=== PATIENT | female | born 1995 | race African-American/Black ===

== ENCOUNTER 2017-02-28 09:27 | Inpatient (IN) ==
[2017-02-28] MEDS ORDERED: SODIUM CHLORIDE 0.9% 500 ML IV STA (10:17)
[2017-02-28] MEDS ORDERED: ONDANSETRON 4 MG/2 ML VIAL IV STA (10:17)
[2017-02-28] MEDS ORDERED: ONDANSETRON 4 MG/2 ML VIAL ONE ×3 (10:44→17:27)
[2017-02-28 10:53] LABS: Basophils % 0.2 % (0.0-0.8); Eosinophils # 0.1 10*3/uL (0.0-0.87); Eosinophils % 0.4 % (0.00-10.9); Hematocrit 26.5 VOL% (35.7-47.0); Hemoglobin 8.3 GM/DL (12.0-16.0); Immature Granulocytes % 0.7 %; Immature Granulocytes Absolute 0.12 #; Lymphocytes # 1.3 10*3/uL (1.4-4.0); Lymphocytes % 7.3 % (21.3-54.2); Mean Corpuscular HGB Conc 31.3 GM/DL (32-36); Mean Corpuscular Hemoglobin 23 PG (27-34); Mean Corpuscular Volume 74.9 FL (87-102); Mean Platelet Volume 9.7 FL (9.6-12.0); Monocytes # 1.4 10*3/uL (0.11-0.8); Monocytes % 7.9 % (1.7-12.7); Neutrophils % 83.5 % (38.7-73.9); Platelet Count 377 T/CUMM (130-400); Red Blood Count 3.54 MC/CUMM (3.8-5.5); Red Cell Distribution Width 18.2 % (9.3-17.3)
[2017-02-28 11:01] LABS: Apearance,Urine Slightly Hazy (Clear); Bilirubin,Urine Negative (Negative); Blood, Urine Negative (Negative); Glucose,Urine (UA) Negative (Negative); Ketones,Urine 5 mg/dL (Negative); Mucus,Urine Many /LPF (Occasional); Nitrite,Urine Negative (Negative); Protein,Urine 100 MG/DL; RBC,Urine 2 /HPF (0-4); Squamous Epithelial Cell,Urine Occasional /HPF (0-10); Urine Color Dark Yellow (Yellow); Urine Specific Gravity 1.032 (1.001-1.035); Urine Urobilinogen < 2.0 EU/DL (0.2-1.0); WBC,Urine 2 /HPF (0-6)
[2017-02-28 11:30] LABS: Albumin 3.5 G/DL (3.4-5.0); Bilirubin,Total 1.2 MG/DL (0.2-1.0); Calcium 8.2 MG/DL (8.5-10.1); Magnesium 1.7 MG/DL (1.8-2.4); Osmolality,Calculated 276.5 MOS/KG (273-304); Potassium 3.5 MMOL/L (3.5-5.1)
--- NOTE | 2017-02-28 12:20 | CT Report ---
Referring physician: Jonny Rothman EXAM: CT abdomen and pelvis with contrast DATE: February 28, 2017 COMPARISON: Pelvic ultrasound January 04, 2017 REASON: Diffuse/generalized abdominal pain with nausea TECHNIQUE: Axial images of the abdomen and pelvis were obtained after administration of 100 cc of Omnipaque 350 IV contrast. Coronal and sagittal reformatted images were also provided. Total DLP is 767.8 mGy*cm. FINDINGS: Lower thorax: The visualized lower lung zones are clear. ABDOMEN: Liver: Unremarkable. Gallbladder and bile ducts: The gallbladder is unremarkable. No biliary duct dilatation is present. Pancreas: Unremarkable. Spleen: Unremarkable. Adrenals: Unremarkable. Kidneys and ureters: No hydronephrosis or suspicious renal lesion is identified. The ureters are unremarkable as visualized. PELVIS: Bladder: The bladder is poorly distended and difficult to evaluate. Reproductive: The uterus is enlarged and contains several masses which are most consistent with uterine fibroids. One is likely subserosal and located at the anterior uterine wall, and another could be intramural or submucosal and obscures the endometrium. Similar findings are seen on the prior pelvic ultrasound. Evaluation of the ovaries is limited. There is a fluid-filled tubular structure adjacent to the left aspect of the uterus. This could represent an unopacified loop of small bowel or left hydrosalpinx. ABDOMEN AND PELVIS: Bowel: There is no evidence of bowel obstruction. Evaluation for bowel wall thickening is difficult due to areas of poor distention, but there is questionable mild bowel wall thickening at some loops of proximal small bowel. Appendix: The appendix is partially obscured, but the visualized portion appears normal in size. Vasculature: The abdominal aorta is normal in size. Peritoneum/retroperitoneum: No free air is identified. However, there is diffuse mesenteric edema and mild ascites within the abdomen and pelvis. Lymph nodes: There are a few borderline prominent periaortic lymph nodes. A left periaortic lymph node on image 68, series 2 measures 1 cm in short axis diameter. Abdominal/pelvic wall: Unremarkable. Bones: No acute osseous process is seen. There is mild levoscoliosis at the lumbar spine. IMPRESSION: 1. The uterus is enlarged and contains several masses which are most consistent with uterine fibroids. This is similar to the prior ultrasound. 2. There is a tubular fluid-filled structure adjacent to the left aspect of the uterus. This could represent a fluid-filled loop of small bowel or left hydrosalpinx. 3. There is mild ascites within the abdomen and pelvis and diffuse mesenteric edema. There is also questionable mild wall thickening at some loops of proximal small bowel. Considerations include enteritis or other infectious/inflammatory processes such as pelvic inflammatory disease. The CT exam was performed using one or more of the following dose reduction techniques: Automated exposure control and adjustment of the mA and/or kV according to patient size. PROCEDURE INTERPRETED AT [facility] DEPARTMENT OF RADIOLOGY Final Report Signed by: Dr. Pako Girard
--- NOTE | 2017-02-28 12:48 | Emergency Department Note ---
Evi Abraham Brittany, am scribing for, and in the presence of, Jonny Rothman MD 10:22. Stephan Abraham Phillip K, MD, personally performed the services described in this documentation, ascribed by Nury Steve in my presence, and it is both accurate and complete 044 . Arrival - Arrival Chief Complaint: Abdominal / Flank Pain Stated Complaint: cp and back pain ED Nursing Triage Note: c/o rt lower back pain and upper abd pain onset yesterday. took aleve without relief Mode of Arrival: Ambulatory Limitations: No Limitations Source: Patient Time Seen by Provider: 02/28/17 10:01 - History of Present Illness HPI Narrative: This is a 21 y/o female,who presents to the ED with c/o lower back pain which started yesterday. She localizes the back pain to the right lower back area. She reports the back pain moves into the upper right quadrant of the abdomen and moves into her neck. She reports nausea but no vomiting. She reports she has noticed hematuria but this is secondary to her menstrual cycle. She states Her menstrual cycle started February 13 and has been constant since then. She states her menstrual cycle has been lke this since she has started control. She reports she took OTC meds without relief. She has no other complaints/pain in the ED at this time. Pt denies a PMHx. Pt denies a surgical Hx. Pt denies a family medical Hx. Pt denies a social Hx. Onset (ago): day(s) (Started yesterday) Consistency: constant Severity: moderate Date of Last Menstrual Period: now Allergies/Adverse Reactions: Allergies Allergy/AdvReac Type Severity Reaction Status Date / Time Penicillins Allergy Unknown/Unable Verified 01/04/17 21:17 to obtain Home Medications: Home Medications Medication Instructions Recorded Confirmed Type No Known Home Medications [No 02/28/17 02/28/17 History Known Home Medications] Review of System - Review of System 12 point system: reviewed and no additional remarkable complaints except as stated - Review of System Constitutional: Absent: chills, fever Gastrointestinal: Present: abdominal pain (Upper abdomen pain ), nausea. Absent : vomiting Genitourinary female: Present: hematuria Musculoskeletal: Present: lower back pain (Right sided lower back pain ), neck pain Medical,Surgical,& Family Hx - Social History Smoking Status: Never smoker Frequency of Alcohol Use: None Type of Drug Use: None Exam Vital Signs: Vital Signs Temperature 98 F 02/28/17 18:10 Pulse Rate 96 H 02/28/17 18:10 Respiratory Rate 19 02/28/17 18:10 Blood Pressure 132/77 02/28/17 18:10 O2 Sat by Pulse Oximetry 96 02/28/17 18:10 - General General appearance: alert, in no apparent distress - Head Head exam: Present: atraumatic, normocephalic, normal inspection - Eye Eye exam: Present: normal appearance, PERRL, EOMI. Absent: nystagmus, miosis, mydriasis - ENT ENT exam: Present: normal exam, normal oropharynx, mucous membranes moist - Neck Neck exam: Present: normal inspection, full ROM, trachea midline. Absent: tenderness, meningismus, lymphadenopathy, thyromegaly - Chest Chest inspection: Present: normal inspection, symmetric chest wall rise. Absent : tenderness, rash, abscess - Respiratory Respiratory exam: Present: normal lung sounds bilaterally ( ). Absent: rales, respiratory distress, rhonchi, stridor, wheezes - Cardiovascular Cardiovascular exam: Present: normal rhythm, tachycardia, normal heart sounds. Absent: murmur, rubs, gallop, clicks - Abdominal Exam Abdominal exam: Present: soft, tenderness (Diffuse abdomen tenderness, Abdomen TTP), rebound, diminished bowel sounds. Absent: distention, guarding, rigidity - Rectal Exam Rectal exam: Present: deferred - Extremities Exam Extremities exam: Present: normal inspection, full ROM, normal capillary refill. Absent: tenderness, pedal edema, joint swelling, calf tenderness - Back Exam Back exam: Present: normal inspection, full ROM. Absent: tenderness, muscle spasm, rashes - Neurological Exam Neurological exam: Present: alert, oriented X3, CN II-XII intact. Absent: motor sensory deficit - Psychiatric Psychiatric exam: Present: normal affect, normal mood. Absent: depressed, agitated, anxious, manic - Skin Skin exam: Present: warm, dry, intact, normal color. Absent: rash, cyanosis, diaphoresis, erythema, pallor, mottled Results - Labs CBC & BMP: 02/28/17 17:53 02/28/17 10:32 Lab Results: I have reviewed the patients labs Labs: Laboratory Tests Laboratory Tests 02/28/17 02/28/17 02/28/17 10:32 10:32 10:32 WBC 18.0 H RBC 3.54 L Hgb 8.3 L Hct 26.5 L MCV 74.9 L MCH 23 L MCHC 31.3 L RDW 18.2 H Plt Count 377 MPV 9.7 Neut % (Auto) 83.5 H Lymph % (Auto) 7.3 L [place] % (Auto) 7.9 Eos % (Auto) 0.4 Baso % (Auto) 0.2 Neut # (Auto) 15.0 H Lymph # (Auto) 1.3 L [place] # (Auto) 1.4 H Eos # (Auto) 0.1 Baso # (Auto) 0.0 Immature Gran % 0.7 Nucleated RBC % 0.0 Immature Gran # 0.12 Nucleated RBCs # 0.00 Sodium 139 Potassium 3.5 Chloride 105 Carbon Dioxide 25 Anion Gap 12.5 BUN 12 Creatinine 0.70 GFR Calculation 152 BUN/Creatinine Ratio 17.00 Glucose 103 Calculated Osmolality 276.5 Lactic Acid Calcium 8.2 L Magnesium 1.7 L Total Bilirubin 1.20 H AST 18 ALT 18 Alkaline Phosphatase 60 Total Protein 8.0 Albumin 3.5 Globulin 4.5 H Albumin/Globulin Ratio 0.7 L Lipase 54.0 L Urine Color Dark yellow Urine Appearance Slightly hazy Urine pH 5.0 Ur Specific [place] 1.032 Urine Protein 100 Urine Glucose (UA) Negative Urine Ketones 5 Urine Blood Negative Urine Nitrate Negative Urine Bilirubin Negative Urine Urobilinogen < 2.0 H Urine Leukocytes Negative Urine RBC 2 Urine WBC 2 Ur Squamous Epith Cells Occasional Urine Mucus Many Ur Culture Indicated? Not indicated Urine Test Negative 02/28/17 14:23 WBC RBC Hgb Hct MCV MCH MCHC RDW Plt Count MPV Neut % (Auto) Lymph % (Auto) [place] % (Auto) Eos % (Auto) Baso % (Auto) Neut # (Auto) Lymph # (Auto) [place] # (Auto) Eos # (Auto) Baso # (Auto) Immature Gran % Nucleated RBC % Immature Gran # Nucleated RBCs # Sodium Potassium Chloride Carbon Dioxide Anion Gap BUN Creatinine GFR Calculation BUN/Creatinine Ratio Glucose Calculated Osmolality Lactic Acid 0.8 Calcium Magnesium Total Bilirubin AST ALT Alkaline Phosphatase Total Protein Albumin Globulin Albumin/Globulin Ratio Lipase Urine Color Urine Appearance Urine pH Ur Specific [place] Urine Protein Urine Glucose (UA) Urine Ketones Urine Blood Urine Nitrate Urine Bilirubin Urine Urobilinogen Urine Leukocytes Urine RBC Urine WBC Ur Squamous Epith Cells Urine Mucus Ur Culture Indicated? Urine Test - Diagnostic Findings Procedure: CT Abdomen and Pelvis: report reviewed by me (1. The uterus is enlarged and contains several masses which are most consistent with uterine fibroids. This is simialr to the prior ultrasound. 2. There is a tubular fluid- filled structure adjacent ot the left aspcet of the uterus. This could represent a fluid-filled loop of small bowel or left hydrosalpnx. 3. There is a mild ascites within the abdomen and pelvis and diffuse mesenteric edema. There is also questionable mild wall thickening at some loops of proximal small bowel. Considerations include enteritis or other infectious/inflammatory processes such as pelvic inflammatory disease. ) Disposition Clinical Impression: Abdominal pain, Uterine fibroid, Anemia, possible pelvic inflammatory disease, possible endometriosis Case discussed with: patient Disposition: Still a Patient Condition: Guarded
[2017-02-28] MEDS ORDERED: CLINDAMYCIN INJ 900 MG in PREMIX 1 EACH IV STA (12:55)
[2017-02-28] MEDS ORDERED: CLINDAMYCIN INJ 50 ML IV ONE (13:09)
--- NOTE | 2017-02-28 15:10 | General Surg History&Physical ---
Assessment and Plan (1) Abdominal pain Status: Acute Assessment and plan: Impression: Acute abdomen Plan: I reviewed the CT images and report. There is a lot of fluid throughout the abdomen especially in the lower abdomen and pelvis. Her uterus appears abnormal probably fibroids. Possibly left hydrosalpinx. Lactic acid level is normal. White blood cell count elevated. test negative. Given her abdominal exam and the finding of acute abdomen of offered exploratory laparotomy with any other indicated procedure. Options of proceeding with antibiotics and admission and conservative treatment were also discussed but the possibility of worsening of her condition is an option and also discussed that with her. She would like to proceed with laparotomy. Risk of the procedure including bleeding, infection, damage to surrounding structures, need for further surgery were all discussed in detail. I suspect the fluid in the abdomen may be blood and this may all be a gynecologic issue. I discussed the case with Dr. Shearer who is supervisor television chassis repair for gynecology. He recommended proceeding and notifying him for any gynecologic abnormality. Current Visit: Yes History of Present Illness Chief complaint: abdominal pain History of present illness: Ms. Owens is a 21 year old female who is otherwise healthy presents with 2-3 month history of irregular menses. She states she's had long heavy periods. Her control was changed about this time several months ago. However yesterday morning she began to have abdominal pain which has progressively worsened prompting her to come to the emergency room. She's had nausea and vomiting. She denies dysuria. She has no chest pain or shortness of breath. She has not had any fever. She's not had any foul-smelling or irregular vaginal discharge other than blood or any other complaints. She states her pain is better when she is sitting still. It hurts to move around or to lie on her back next the pain go up into her right shoulder. Home Medications Medication Instructions Recorded Confirmed Type No Known Home Medications [No 02/28/17 02/28/17 History Known Home Medications] Allergies Allergy/AdvReac Type Severity Reaction Status Date / Time Penicillins Allergy Unknown/Unable Verified 01/04/17 21:17 to obtain Medical,Surgical,& Family Hx - Medical History Medical History: noncontributory - Social History Smoking Status: Never smoker Frequency of Alcohol Use: None Type of Drug Use: None Exam - Constitutional Vitals: Period Temp Pulse Resp BP Sys/Conley Pulse Ox Last 24 Hr 98.1 F-98.1 F 100-119 18-22 98-133/72-96 97-100 General appearance: mild distress - Head Head exam: Present: normocephalic - ENT Mouth exam: Present: normal external inspection - Neck Neck exam: Present: normal inspection - Respiratory Respiratory exam: Present: clear to auscultation bilaterally - Cardiovascular Cardiovascular exam: Present: RRR - GI/Abdominal GI/Abdominal exam: Present: soft (diffusely tender with peritoneal signs. She has guarding and rebound throughout her abdomen. She appears mildly distended.) - Extremities Exam Extremities exam: Present: normal inspection - Back Exam Back exam: Present: normal inspection - Neurological Exam Neurological exam: Present: alert, oriented X3 Speech: Present: normal - Skin Skin exam: Present: normal color 12 point system: reviewed and no additional remarkable complaints except as stated Results - Labs CBC & BMP: 02/28/17 10:32 02/28/17 10:32 Lab Results: I have reviewed the past 24 hour labs
[2017-02-28] MEDS ORDERED: GLYCOPYRROLATE 0.4 MG/2 ML VIAL ONE (15:25)
[2017-02-28] MEDS ORDERED: NEOSTIGMINE 10 MG/10 ML VIAL ONE (15:25)
[2017-02-28] MEDS ORDERED: ROCURONIUM 100 MG/10 ML VIAL IV ONE (15:25)
[2017-02-28] MEDS ORDERED: SUCCINYLCHOLINE 200 MG/10 ML VIAL ONE (15:25)
[2017-02-28] MEDS ORDERED: KETOROLAC 30 MG/1 ML VIAL ONE (15:25)
[2017-02-28] MEDS ORDERED: PROPOFOL 200 MG/20 ML VIAL IV ONE (15:25)
[2017-02-28] MEDS ORDERED: LIDOCAINE 2% 5 ML VIAL ONE (15:25)
[2017-02-28] MEDS ORDERED: PHENYLEPHRINE 1 MG/10 ML SYRINGE IV ONE (15:25)
[2017-02-28] MEDS ORDERED: DEXAMETHASONE 10 MG/1 ML VIAL ONE (15:25)
[2017-02-28] MEDS ORDERED: metroNIDAZOLE 500 MG/100 ML PREMIX IV ONE (15:32)
[2017-02-28] MEDS ORDERED: ceFAZolin 1,000 MG VIAL ONE (15:32)
[2017-02-28] MEDS ORDERED: LEVOFLOXACIN INJ 100 ML IV ONE (15:32)
[2017-02-28] MEDS ORDERED: BUPIVACAINE 0.25% /EPI 10 ML VIAL ONE ×2 (15:52→16:03)
--- NOTE | 2017-02-28 16:33 | Anesthesia ---
Anesthesia Procedures - Nerve Blocks Main Anesthetic: general anesthesia (with regional; B/L rectus sheath block) Local Anesthetic: other (marcaine 0.25% 30mL on each side injected after aspiration every 5 mL) Ultrasound Used to: Recognize Landmarks (using ultrasound and steril prep performed B/L rectus sheath blocks in the OR prior to PACU. rectus sheath easily identified) Nerve Stimulator used: No
[2017-02-28] MEDS ORDERED: ONDANSETRON 4 MG/2 ML VIAL IV PRN ×2 (17:08→18:34)
[2017-02-28] MEDS ORDERED: NALOXONE 0.4 MG/ML VIAL IV PRN (17:08)
[2017-02-28 17:10] LABS: Apearance,Urine Slightly Hazy (Clear); Bilirubin,Urine Negative (Negative); Blood, Urine Small mg/dL (Negative); Glucose,Urine (UA) Negative (Negative); Ketones,Urine 5 mg/dL (Negative); Mucus,Urine Occasional /LPF (Occasional); Nitrite,Urine Negative (Negative); Protein,Urine 30 MG/DL; RBC,Urine 13 /HPF (0-4); Squamous Epithelial Cell,Urine Occasional /HPF (0-10); Urine Color Yellow (Yellow); Urine Specific Gravity 1.051 (1.001-1.035); Urine Urobilinogen < 2.0 EU/DL (0.2-1.0); WBC,Urine 2 /HPF (0-6)
--- NOTE | 2017-02-28 17:19 | Operative Note ---
Date of procedure: 02/28/17 Pre-op diagnosis: acute abdomen Post-op diagnosis: same (hemoperitoneum, abnormal appearing uterus) Procedure: Procedure performed: Exploratory laparotomy Procedure in detail: After informed consent was obtained, patient was taken operating suite and laid supine on the operating table. After general anesthesia was induced a Zheng catheter was placed and the abdomen was prepped and draped in usual sterile fashion. After procedural pause midline laparotomy incision my dissection carried down through skin and soft tissue. As the fascia was opened there was copious return of dark thin bloody fluid. This was all suctioned from the abdominal cavity. There were no clots. The abdomen was thoroughly irrigated and suctioned. The uterus identified. Very abnormal. There were multiple cystic lesions over the dome of the uterus one of these appeared to have recently ruptured spilling this fluid. There is some mild diffuse present in this area was packed off. Then examined the stomach liver appendix gallbladder small bowel and colon. All of these structures appeared normal. There was no further pooling in the left upper quadrant and the spleen was palpated and it appeared to have a regular contour and did not feel abnormal. Small bowel did not appear dilated. Colon appeared normal and the sigmoid was pushed upward from the abnormal uterus. The rectum was intimately adherent to the posterior aspect of the uterus and no appreciable plane could be identified. There was no purulence or any sign of infection. Dr. Shearer came in and evaluated the abnormal uterus which was suspected area of the blood loss. Biopsies were performed. Please see his operative report for details regarding that portion of the operation. Afterward there was excellent hemostasis no active bleeding. A 10 Tamazight Graham drain was then brought through a separate incision in the left lower quadrant and placed i over the top of the uterus. Secured in place with 3-0 nylon suture. Midline fascia was then closed with #1 running looped PDS. Incision was thoroughly irrigated and suction the skin closed with idania. An abdominal block was performed by anesthesia and then sterile dressings applied and the patient was extubated and taken recovery room in stable condition. All lap and needle counts correct at the end of the case. Anesthesia: GETA Surgeon / Physician: Farhad Acosta Estimated blood loss: other (approximately 400 mL of thin bloody fluid evacuated , 20 mL of blood loss during the procedure) Specimens: other (suspected endometriosis) Condition: stable Disposition: PACU Results - Labs CBC & BMP: 02/28/17 10:32 02/28/17 10:32 Discharge Plan - Discharge Medications No Action No Known Home Medications [No Known Home Medications] - Follow Up or Referral - Forms/Instructions
--- NOTE | 2017-02-28 17:22 | Anesthesia ---
Anesthesia Post OP - Post Ansesthetic Evaluation Patient seen in post op: Yes Resp: within normal limits CV: within normal limits Mental: within normal limits Temp: within normal limits [id number]: within normal limits Nausea and Vomiting: within normal limits Pain: within normal limits
[2017-02-28] MEDS ORDERED: SEVOFLURANE 1 UNIT/15 MINUTE INH ONE (17:26)
[2017-02-28] MEDS ORDERED: ACETAMINOPHEN 1,000 MG/100 ML VIAL IV ONE (17:27)
[2017-02-28] MEDS ORDERED: fentaNYL 100 MCG/2 ML VIAL ONE (17:27)
[2017-02-28] MEDS ORDERED: MIDAZOLAM 2 MG/2 ML VIAL ONE (17:27)
[2017-02-28] MEDS ORDERED: HYDROmorphone 2 MG/1 ML VIAL ONE (17:27)
[2017-02-28] MEDS ORDERED: LACTATED RINGERS 2,000 ML IV ONE (17:27)
[2017-02-28] MEDS ORDERED: LACTATED RINGERS 1,000 ML IV SCH (17:30)
[2017-02-28] MEDS ORDERED: MORPHINE PCA 150 MG/30 ML SYRINGE IV SCH (17:30)
[2017-02-28] MEDS: HYDROmorphone 2 MG/1 ML VIAL IV PRN ×3 (17:31→17:57)
[2017-02-28 18:06] LABS: Hematocrit 24.7 VOL% (35.7-47.0); Hemoglobin 7.8 GM/DL (12.0-16.0)
[2017-02-28] MEDS ORDERED: ACETAMINOPHEN 325 MG TABLET PO PRN (18:34)
--- NOTE | 2017-02-28 18:44 | Consultation ---
Assessment and Plan (1) Endometriosis Status: Acute Assessment and plan: Start on DepoLupron as soon as confirmed by peritoneal biopsies. Current Visit: Yes (2) Uterine fibroid Status: Acute Assessment and plan: Some reduction in size can be expected from DepoLupron. Current Visit: Yes History of Present Illness - Data of Consult Consult date: 02/28/17 Requesting Physician: Farhad Acosta - Consult Narrative History of present illness: Ms. Owens is a 21 year old female wh was undergoing exploratory laparotomy for presumed acute abdomen. Exploration revealed a large hemoperitoneum without obvious general surgical etiology. However there is extensive pelvic disease and gynecological consultation requested. CC: Farhad Acosta MD - Home Medications and Allergies Home Medications: Home Medications Medication Instructions Recorded Confirmed Type No Known Home Medications [No 02/28/17 02/28/17 History Known Home Medications] Allergies/Adverse Reactions: Allergies Allergy/AdvReac Type Severity Reaction Status Date / Time Penicillins Allergy Unknown/Unable Verified 01/04/17 21:17 to obtain Medical,Surgical,& Family Hx - Social History Smoking Status: Never smoker Frequency of Alcohol Use: None Type of Drug Use: None Exam - Constitutional Vitals: Period Temp Pulse Resp BP Sys/Conley Pulse Ox Last 24 Hr 97.6 F-98.1 F 89-119 16-24 98-134/69-96 95-100 - GI/Abdominal GI/Abdominal exam: Present: other (Evaluation through the laparotomy incision revealed extensive loss of pelvic anatomy with the entire cul-de-sac being obliterated with bowel adhesions. Large bilateral hydrosalpinx's were noted containing a clear to dark fluid. Multiple bullous lesions were present throughout the pelvis and adnexa mostly clear that also containing a wine colored fluid. The anterior pelvic space was covered with purplish invasive lesions with some adhesions to the anterior abdominal wall. Neither ovary could be visualized due to the adhesions. Evaluation of the upper abdomen failed to reveal any evidence of metastatic disease on the omentum or the other peritoneal surfaces.The uterus was enlarged to an 18 week gestational size and contained multiple fibroids of varying sizes.) Results - Labs CBC & BMP: 02/28/17 17:53 02/28/17 10:32
[2017-02-28] MEDS: LACTATED RINGERS 1,000 ML IV SCH (19:11)
[2017-02-28] MEDS ORDERED: MORPHINE PCA 30 MG/30 ML SYRINGE IV SCH (19:30)
[2017-02-28] MEDS: diphenhydrAMINE 50 MG/1 ML VIAL IV PRN (19:45)
[2017-02-28] MEDS: metroNIDAZOLE INJ 500 MG in PREMIX 1 EACH IV SCH (19:45)
[2017-02-28] MEDS: LEVOFLOXACIN INJ 750 MG in PREMIX 1 EACH IV SCH (21:30)
[2017-03-01] MEDS: metroNIDAZOLE INJ 500 MG in PREMIX 1 EACH IV SCH ×3 (04:06→18:51)
[2017-03-01] MEDS: LACTATED RINGERS 1,000 ML IV SCH (04:09)
[2017-03-01 05:40] LABS: Basophils % 0.1 % (0.0-0.8); Hematocrit 24.5 VOL% (35.7-47.0); Hemoglobin 7.5 GM/DL (12.0-16.0); Immature Granulocytes % 0.8 %; Immature Granulocytes Absolute 0.14 #; Lymphocytes # 0.8 10*3/uL (1.4-4.0); Lymphocytes % 4.3 % (21.3-54.2); Mean Corpuscular HGB Conc 30.6 GM/DL (32-36); Mean Corpuscular Hemoglobin 23 PG (27-34); Mean Corpuscular Volume 75.2 FL (87-102); Mean Platelet Volume 9.7 FL (9.6-12.0); Monocytes # 0.7 10*3/uL (0.11-0.8); Monocytes % 3.7 % (1.7-12.7); Neutrophils # 16.2 10*3/uL (1.4-7.4); Neutrophils % 91.1 % (38.7-73.9); Platelet Count 352 T/CUMM (130-400); Red Blood Count 3.26 MC/CUMM (3.8-5.5); Red Cell Distribution Width 18.2 % (9.3-17.3); White Blood Count 17.7 T/CUMM (4-12)
[2017-03-01 06:12] LABS: Band Neutrophils 2 % (0-10); Hypochromasia 1+; Lymphocytes 5 % (20-55); Microcytosis 1+; Platelet Estimate Normal; Segmented Neutrophils 91 % (50-85); Total Cells Counted 100
[2017-03-01 06:13] LABS: Calcium 8.1 MG/DL (8.5-10.1); Osmolality,Calculated 278.4 MOS/KG (273-304); Potassium 4.3 MMOL/L (3.5-5.1)
[2017-03-01] MEDS ORDERED: SODIUM CHLORIDE 0.9% 250 ML IV PRN (07:51)
--- NOTE | 2017-03-01 08:01 | Event Note ---
Afebrile vital signs stable. Patient states she's feeling much better. She had evacuation of a 400 mL of hemoperitoneum. He has a very abnormal uterus and biopsies were taken. Patient has hungry and wants to eat. She looks good. Her abdomen is soft and appropriately tender and nondistended. Incision looks good. ISABEL drain with moderate amount of serosanguineous fluid. Labs noted. Plan: Advance diet. Will transfuse 2 units packed red blood cells for her anemia which is chronic and related to her heavy menstrual cycles. I see no evidence of active bleeding. Will DC IV fluids and [employer] and start [place] and morphine as needed. Encouraged to ambulate.
[2017-03-01] MEDS: PANTOPRAZOLE 40 MG TABLET PO SCH (08:42)
[2017-03-01] MEDS: LEVOFLOXACIN INJ 750 MG in PREMIX 1 EACH IV SCH (19:57)
[2017-03-01] MEDS: MORPHINE 2 MG/1 ML SYRINGE IV PRN (20:05)
[2017-03-01 20:53] LABS: Hematocrit 31.4 VOL% (35.7-47.0); Hemoglobin 10.2 GM/DL (12.0-16.0)
[2017-03-02] MEDS: MORPHINE 2 MG/1 ML SYRINGE IV PRN (00:39)
[2017-03-02] MEDS ORDERED: KETOROLAC 30 MG/1 ML VIAL IV ONE (01:10)
[2017-03-02] MEDS: metroNIDAZOLE INJ 500 MG in PREMIX 1 EACH IV SCH ×3 (03:31→18:54)
[2017-03-02 04:44] LABS: Basophils % 0.1 % (0.0-0.8); Eosinophils % 0.1 % (0.00-10.9); Hematocrit 30.4 VOL% (35.7-47.0); Hemoglobin 9.8 GM/DL (12.0-16.0); Immature Granulocytes % 0.6 %; Immature Granulocytes Absolute 0.13 #; Lymphocytes # 2.5 10*3/uL (1.4-4.0); Mean Corpuscular HGB Conc 32.2 GM/DL (32-36); Mean Corpuscular Hemoglobin 25 PG (27-34); Mean Corpuscular Volume 78.8 FL (87-102); Monocytes # 1.1 10*3/uL (0.11-0.8); Monocytes % 5.4 % (1.7-12.7); Neutrophils # 16.9 10*3/uL (1.4-7.4); Neutrophils % 81.8 % (38.7-73.9); Platelet Count 335 T/CUMM (130-400); Red Blood Count 3.86 MC/CUMM (3.8-5.5); Red Cell Distribution Width 19.6 % (9.3-17.3); White Blood Count 20.6 T/CUMM (4-12)
[2017-03-02 05:23] LABS: Burr Cells Slight; Hypochromasia 1+; Microcytosis 1+; Ovalocytes Slight; Platelet Estimate Adequate
--- NOTE | 2017-03-02 08:20 | Event Note ---
Afebrile. Head mild tachycardia with pain last night. She was given Toradol and this resolved. This morning she says she feels great. She is having no abdominal pain. She says she is feeling much better. She would like to go home. She is tolerating diet without any nausea or vomiting. On exam lungs are clear. Heart regular rate and rhythm. Abdomen is soft and appropriately tender around the incision and nondistended. Incision looks okay. ISABEL drain is serous with moderate output. Received a blood cells and H&H appears stable. No evidence of active bleeding. Plan: Plan for discharge today. We'll get a follow-up with Dr. Shearer. I'll see her next week to remove the ISABEL drain. Keep an drain Journal. Discharge and wound care instructions given. She has a leukocytosis that I do not feel is infectious. It was elevated 2 months ago before this problem started. I've discussed with Dr. Schultz. He will see her as an outpatient.
[2017-03-02] MEDS: PANTOPRAZOLE 40 MG TABLET PO SCH (08:25)
--- NOTE | 2017-03-02 11:18 | Pathology Report from [facility] ---
ACCESSION # : [id number] PATIENT NAME : Amanda Melton ORDERING DR : Farhad Acosta MD CLINICAL HX: Abd pain POST-OP DX: Same SPECIMEN INFO: Peritoneal BX GROSS DESCRIPTION: Received fresh labeled with the patient's name "AMANDA MELTON" and consists of an ovoid brown semisoft nodule measuring 1.4 x 1.4 x 0.7 cm. Also in the container are three fragments of mckeon-camejo tissue collectively measuring 3.2 x 1.5 cm. Also a 1.8 x 0.9 cm pale camejo cyst which contains gelatinous material. Sectioning of the nodule reveals a somewhat grumous pale red-camejo material. The remaining tissue is sectioned with all submitted in cassettes A and B. DIAGNOSIS FOR AMANDA MELTON: PERITONEAL BIOPSIES: Multiple fragments of inflamed mesothelial tissue with endometriosis and hematoma. SERVICE DATE: 03/01/2017 REPORT DATE: 03/02/2017 PATHOLOGIST: Silvia Hsieh
--- NOTE | 2017-03-02 14:09 | XRay Report ---
Exam: XR abdomen 2V Date: 03/02/2017 1:26 PM Comparison: None Indication: Generalized abdominal pain Technique:[Supine and erect abdomen] Findings: Gaseous distention of the bowel including the small bowel and colon. Air-fluid levels are noted on the erect film. Interval surgery with apparent surgical drain. Impression: Interval surgery with probable post operative ileus. However follow up x-ray may be helpful for further evaluation of the minimal to moderate dilatation of the bowel. Apparent surgical drain noted in the mid inferior abdomen. PROCEDURE INTERPRETED AT [facility] DEPARTMENT OF RADIOLOGY Final Report Signed by: Dr. Magaly Butterfield
[2017-03-02] MEDS: diphenhydrAMINE 50 MG/1 ML VIAL IV PRN (16:36)
[2017-03-02] MEDS: METOCLOPRAMIDE 10 MG/2 ML VIAL IV SCH (18:48)
[2017-03-02] MEDS: SODIUM CHLORIDE 0.9% 1,000 ML IV SCH (18:54)
[2017-03-02] MEDS: LEVOFLOXACIN INJ 750 MG in PREMIX 1 EACH IV SCH (20:13)
[2017-03-03] MEDS: diphenhydrAMINE 50 MG/1 ML VIAL IV PRN (00:59)
[2017-03-03] MEDS: METOCLOPRAMIDE 10 MG/2 ML VIAL IV SCH ×3 (01:03→16:57)
[2017-03-03] MEDS: metroNIDAZOLE INJ 500 MG in PREMIX 1 EACH IV SCH ×3 (03:26→20:18)
[2017-03-03] MEDS: SODIUM CHLORIDE 0.9% 1,000 ML IV SCH ×3 (03:27→12:30)
[2017-03-03] MEDS: MORPHINE 2 MG/1 ML SYRINGE IV PRN ×3 (07:26→22:56)
--- NOTE | 2017-03-03 08:15 | XRay Report ---
Referring Physician: CHET Chris Exam: XR abdomen 2V Date: March 03, 2017 at 8:02 AM Reason: Follow-up ileus Comparison: Abdomen 2 views March 02, 2017 Findings: There is gaseous distention of the colon but decreased air within the small bowel today. This is concerning for ileus. A surgical drain projects at the left lower quadrant, and there are surgical idania at the abdomen near midline. No free air is identified. No acute osseous process is seen. Impression: There is gaseous distention of the colon with decreased air within the small bowel. This is concerning for ileus. PROCEDURE INTERPRETED AT [facility] DEPARTMENT OF RADIOLOGY Final Report Signed by: Dr. Pako Girard
[2017-03-03 09:29] LABS: Basophils # 0.1 10*3/uL (0.0-0.2); Basophils % 0.3 % (0.0-0.8); Eosinophils # 0.4 10*3/uL (0.0-0.87); Eosinophils % 2.7 % (0.00-10.9); Hematocrit 31.6 VOL% (35.7-47.0); Hemoglobin 10.3 GM/DL (12.0-16.0); Immature Granulocytes % 0.6 %; Immature Granulocytes Absolute 0.08 #; Lymphocytes # 1.6 10*3/uL (1.4-4.0); Lymphocytes % 10.8 % (21.3-54.2); Mean Corpuscular HGB Conc 32.6 GM/DL (32-36); Mean Corpuscular Hemoglobin 25 PG (27-34); Mean Corpuscular Volume 77.5 FL (87-102); Mean Platelet Volume 9.2 FL (9.6-12.0); Monocytes # 0.9 10*3/uL (0.11-0.8); Neutrophils # 11.4 10*3/uL (1.4-7.4); Neutrophils % 79.6 % (38.7-73.9); Platelet Count 356 T/CUMM (130-400); Red Blood Count 4.08 MC/CUMM (3.8-5.5); Red Cell Distribution Width 20.3 % (9.3-17.3); White Blood Count 14.3 T/CUMM (4-12)
--- NOTE | 2017-03-03 09:55 | Event Note ---
Status post laparotomy for acute abdomen. She was found to have hemoperitoneum likely from the uterine source. The uterus was very abnormal and biopsies were performed by Dr. Shearer. ISABEL drain was placed at the time of surgery. She was set for discharge yesterday but had nausea and vomiting after eating. This morning she feels much better. She reports lots of flatus. Exam: Her abdomen is soft and mildly distended but with good bowel sounds. Incision looks good. ISABEL drain with moderate serosanguineous fluid. Plan: Bowel function returning. Will give clear liquids today. She was instructed to go slow. Advance diet as tolerated over the weekend. Leave ISABEL drain and I'll remove in the office next week. She has a chronic leukocytosis which will be managed by Dr. Schultz as an outpatient. She will follow-up with Dr. Shearer as an outpatient regarding her abnormal uterus.
[2017-03-03] MEDS: PANTOPRAZOLE 40 MG TABLET PO SCH (09:56)
[2017-03-03 10:29] LABS: Calcium 7.8 MG/DL (8.5-10.1); Osmolality,Calculated 277.4 MOS/KG (273-304); Potassium 3.8 MMOL/L (3.5-5.1)
[2017-03-03] MEDS: SIMETHICONE CHEW 80 MG TABLET PO PRN (10:49)
--- NOTE | 2017-03-03 14:23 | Discharge Summary ---
Hospital Course - Hospital Course Hospital Course: Patient is a 21-year-old female who presented to the emergency department with an acute abdomen and findings of free fluid in the lower abdomen and pelvis for which she underwent exploratory laparotomy. Findings included hemoperitoneum and abnormal uterus with multiple cystic lesions of the dome and biopsies were obtained with the assistance of Dr. Shearer from gynecology. Postoperatively, the patient experienced postprandial vomiting with undigested food particles and was found to have suspected postoperative ileus. This delayed her discharge requiring n.p.o. status and monitoring with slow advancement of her diet to tolerance. She ultimately tolerated activity and oral intake without difficulty with adequate pain control. Additionally she was noted to be anemic; hypochromic microcytic. Suspected iron deficiency with blood loss component with fibroids. Start iron and vitamin C supplementation and follow with hematology as scheduled. She is also found to have persistent leukocytosis dating back to previous emergency room visits for which her referral to Dr. Schultz was made for further evaluation. This was discussed with the patient and her family was present. - Time spent with patient Time with patient DS: Less than 30 minutes Diagnosis - Discharge Diagnosis (1) Endometriosis Status: Acute (2) Anemia Status: Acute (3) Ileus, postoperative Status: Acute (4) Leukocytosis Status: Acute Specialty Discharge - Follow Up or Referrals Follow up with: Farhad Acosta MD [Physician] - 03/13/17 9:45 am Bobby Schultz MD [Physician] - (On Monday03/06/2017 call office to schedule appt approximately 2 wks.) Igor Shearer DO [Physician] - 03/16/17 3:00 pm (please bring medicines, insurance cards and photo id to your appointment.) Discharge Plan - Discharge Data Disposition: Disch To Home/Self Care Condition at Discharge: Stable Discharge Diet: advance to your usual diet Activity: no lifting (no lifting > 10lb) Hygiene: may shower Driving: other (No driving while taking narcotics) Contact your physician if you experience:: fever over 101, Difficulty voiding, Redness or swelling, Nausea/Vomiting, Shortness of breath, Bleeding, pain uncontrolled by pain medications Wound / Dressing Care Instructions: Keep wound clean dry and covered. - Discharge Medications New Ferrous Sulfate Tab [Feosol Original Tab] 325 mg PO BID #60 tablet Ascorbic Acid Tab [Vitamin C Tab] 500 mg PO BID #60 tablet HYDROcodone/ACETAMIN 7.5-325 [[place] 7.5-325] 1 - 2 tablet PO Q6H PRN #30 tablet PRN Reason: Pain Moderate To Severe (4-10) - Follow Up or Referral Follow Up: Farhad Acosta MD [Physician] - 03/13/17 9:45 am Igor Shearer DO [Physician] - 03/16/17 3:00 pm (please bring medicines, insurance cards and photo id to your appointment.) Bobby Schultz MD [Physician] - (On Monday03/06/2017 call office to schedule appt approximately 2 wks.) - Forms/Instructions Instructions: Endometriosis (GEN), Uterine Fibroids (GEN), Exploratory Laparotomy (DC) Exam - Constitutional Vitals: Period Temp Pulse Resp BP Sys/Conley Pulse Ox Last 24 Hr 97.8 F-99.9 F 82-105 16-20 119-135/64-84 87-100 Discharge Results Procedures and tests throughout hospitalization: Pending Orders 03/04/17 04:00 Anemia Profile IN AM Direct Hari IN AM Hemoglobin and Hematocrit IN AM Labs on day of discharge: Labs from last 24 hours 03/03/17 03/03/17 09:23 09:23 WBC 14.3 H D RBC 4.08 Hgb 10.3 L Hct 31.6 L MCV 77.5 L MCH 25 L MCHC 32.6 RDW 20.3 H Plt Count 356 MPV 9.2 L Neut % (Auto) 79.6 H Lymph % (Auto) 10.8 L [place] % (Auto) 6.0 Eos % (Auto) 2.7 Baso % (Auto) 0.3 Neut # (Auto) 11.4 H Lymph # (Auto) 1.6 [place] # (Auto) 0.9 H Eos # (Auto) 0.4 Baso # (Auto) 0.1 Immature Gran % 0.6 Nucleated RBC % 0.0 Immature Gran # 0.08 Nucleated RBCs # 0.00 Sodium 140 Potassium 3.8 Chloride 107 Carbon Dioxide 25 Anion Gap 11.8 BUN 12 Creatinine 0.60 GFR Calculation 160 BUN/Creatinine Ratio 20.00 Glucose 84 Calculated Osmolality 277.4 Calcium 7.8 L - Imaging and Cardiology Procedure: Abdominal x-ray: image reviewed by me, report reviewed by me, CT Abdomen and Pelvis: report reviewed by me, image reviewed by me DS: Provider Date of admission: 02/28/17 15:12 Attending physician on admission: Farhad Acosta MD Consults: 02/28/17 18:38 Consult to Pharmacy [CONS] Routine Reason for Pharmacy Consult: Adjust Meds Renal Funct 03/01/17 07:51 Consult to Physician [CONS] Routine Comment: OPERATED ON PATIENT, NOTIFY OF ROOM Consulting Provider: Igor Shearer When should Consulting Provider be notified: Now Person Notified: BRA[place] Date Notified: 03/01/17 Time Notified: 17:58 Consult Notification Comment: DR SHEARER WILL NOT BE FOLLOWING, Discharging clinician: Eunice Chris PA-C
[2017-03-03] MEDS: LEVOFLOXACIN INJ 750 MG in PREMIX 1 EACH IV SCH (18:41)
[2017-03-03] MEDS: ASCORBIC ACID 500 MG TABLET PO SCH (21:25)
[2017-03-03] MEDS: FERROUS SULFATE 325 MG TABLET PO SCH (21:26)
[2017-03-04] MEDS: METOCLOPRAMIDE 10 MG/2 ML VIAL IV SCH ×2 (01:12→08:44)
[2017-03-04] MEDS: SODIUM CHLORIDE 0.9% 1,000 ML IV SCH ×2 (01:12→10:41)
[2017-03-04] MEDS: SIMETHICONE CHEW 80 MG TABLET PO PRN ×2 (01:18→08:44)
[2017-03-04 02:14] LABS: Basophils % 0.2 % (0.0-0.8); Eosinophils # 0.5 10*3/uL (0.0-0.87); Eosinophils % 4.8 % (0.00-10.9); Hematocrit 31.3 VOL% (35.7-47.0); Hemoglobin 9.9 GM/DL (12.0-16.0); Immature Granulocytes % 0.7 %; Immature Granulocytes Absolute 0.08 #; Lymphocytes # 2.2 10*3/uL (1.4-4.0); Lymphocytes % 20.3 % (21.3-54.2); Mean Corpuscular HGB Conc 31.6 GM/DL (32-36); Mean Corpuscular Hemoglobin 25 PG (27-34); Mean Corpuscular Volume 79.6 FL (87-102); Mean Platelet Volume 9.9 FL (9.6-12.0); Monocytes # 0.8 10*3/uL (0.11-0.8); Monocytes % 7.2 % (1.7-12.7); Neutrophils # 7.3 10*3/uL (1.4-7.4); Neutrophils % 66.8 % (38.7-73.9); Platelet Count 312 T/CUMM (130-400); Red Blood Count 3.93 MC/CUMM (3.8-5.5); Red Cell Distribution Width 20.6 % (9.3-17.3)
[2017-03-04 02:17] LABS: Hematocrit 31.2 VOL% (35.7-47.0); Hemoglobin 9.9 GM/DL (12.0-16.0)
[2017-03-04] MEDS: metroNIDAZOLE INJ 500 MG in PREMIX 1 EACH IV SCH ×2 (03:25→10:48)
[2017-03-04 05:22] LABS: Sedimentation Rate-Westergren 62 MM/HR (0-20)
[2017-03-04 07:30] LABS: Vitamin B12 259 PG/ML (211-911)
[2017-03-04] MEDS: ASCORBIC ACID 500 MG TABLET PO SCH (08:44)
[2017-03-04] MEDS: FERROUS SULFATE 325 MG TABLET PO SCH (08:44)
[2017-03-04] MEDS: PANTOPRAZOLE 40 MG TABLET PO SCH (08:44)
--- NOTE | 2017-03-04 11:15 | Event Note ---
She feels well. She has less ISABEL output. Her hematocrit is stable. Her abdomen is benign and she is afebrile with stable vital signs. She wants to go home. We will discontinue her drain and let her go home today with plans to follow-up with
[2017-03-04 11:48] VITALS: BP 145/76
[2017-03-06 07:52] LABS: Hemoglobin A1 (Alkaline) 97.4 % (96.5-98.5); Hemoglobin A2 (Alkaline) 2.6 % (1.5-3.5)
--- NOTE | 2017-03-09 14:05 | Physician Query Form ---
CLICK EDIT DOCUMENT TO SELECT QUERY ANSWER --> OK --> SIGN Pamela Caro RN, CCDS Certified Clinical Manager Medical Device W) [phone] (f) [phone] [email or web address]: Make your selection(s) from the choices in EACH section by typing an "x" and enter comments in the comment section. Please use your independent medical judgment in providing your response. This request does not imply that any particular answer is desired or expected. CLINICAL INDICATORS: (Providers should not edit this section) Patient admitted with uterine fibroids, anemia, and hemoperitoneum requiring exploratory lap. "Suspected iron deficiency anemia with blood loss component", treated with transfusion of 2 units prbc's. Based on the above, could you clarify which of the following conditions you are evaluating, treating, and/or monitoring? ( ) Blood loss anemia ( ) acute ( ) chronic ( ) acute on chronic (x ) Acute blood loss anemia on baseline iron deficiency anemia ( ) Acute blood loss anemia as a complication of a procedure ( ) Dilutional anemia due to IV fluids ( ) Anemia due to other condition, please specify: ( ) Clinically unable to determine COMMENTS: Use of terms such as suspected, likely, or probable (associated with a specific diagnosis that is being evaluated, monitored, or treated as if it exists) are acceptable and can be restated in the discharge summary if not ruled out. MTDD
== END 2017-03-04 13:18 | disposition home or self-care (01) | DRG 742 ==
LOC: N.ED 09:27 → N.SDSINP 15:01 → N.ED 15:03 → N.3E 15:12
PROVIDERS: ADMIT Surgery; ATTEND Surgery

== ENCOUNTER 2022-03-12 02:03 | Observation (INO) ==
[2022-03-12] MEDS ORDERED: ONDANSETRON 4 MG/2 ML VIAL IV ONE (02:37)
[2022-03-12] MEDS ORDERED: DICYCLOMINE 20 MG/2 ML AMP IM ONE (02:38)
[2022-03-12 03:35] LABS: Mucus,Urine Few /LPF (Occasional); RBC,Urine 1 /HPF (0-4); Squamous Epithelial Cell,Urine Few /HPF (0-10)
[2022-03-12 03:37] LABS: Bilirubin,Urine Negative (Negative); Blood, Urine Negative (Negative); Glucose,Urine (UA) Negative (Negative); Ketones,Urine Negative (Negative); Nitrite,Urine Negative (Negative); Protein,Urine Trace mg/dL (Negative); Urine Appearance Clear (Clear); Urine Color Yellow (Yellow); Urine Urobilinogen 0.2 eU/dL (<2.0)
[2022-03-12 03:48] LABS: Basophils % 0.3 % (0.0-0.8); Eosinophils # 0.2 10*3/uL (0.0-0.87); Eosinophils % 1.5 % (0.00-10.9); Immature Granulocytes % 0.4 %; Immature Granulocytes Absolute 0.04 #; Lymphocytes # 1.1 10*3/uL (1.4-4.0); Lymphocytes % 11.5 % (21.3-54.2); Mean Corpuscular Volume 69.4 FL (87-102); Mean Platelet Volume 9.8 FL (9.6-12.0); Monocytes % 9.9 % (1.7-12.7); Neutrophils % 76.4 % (38.7-73.9); Platelet Count 547 T/CUMM (130-400); Red Blood Count 4.81 MC/CUMM (3.8-5.5); Red Cell Distribution Width 17.3 % (9.3-17.3); White Blood Count 9.7 T/CUMM (4-12)
[2022-03-12 03:52] LABS: Hematocrit 33.4 VOL% (35.7-47.0); Hemoglobin 9.7 GM/DL (12.0-16.0)
[2022-03-12 04:10] LABS: Albumin 3.6 G/DL (3.4-5.0); Bilirubin,Total 0.4 MG/DL (0.20-1.00); Calcium 9.4 MG/DL (8.5-10.1); Osmolality,Calculated 274.8 MOS/KG (273-304); Potassium 3.3 MMOL/L (3.5-5.1); Total Protein 9.2 G/DL (6.4-8.2)
[2022-03-12] MEDS ORDERED: ONDANSETRON 4 MG/2 ML VIAL IV PRN (05:35)
[2022-03-12] MEDS ORDERED: MORPHINE 2 MG/1 ML SYRINGE IV PRN (05:35)
[2022-03-12] MEDS: DEXTROSE 5% NACL 0.45% 1,000 ML IV SCH ×2 (06:00→15:05)
[2022-03-12] MEDS ORDERED: CLINDAMYCIN INJ 900 MG/50 ML PREMIX IV ONE (07:11)
[2022-03-12] MEDS ORDERED: PANTOPRAZOLE 40 MG VIAL IV SCH (09:00)
[2022-03-12 16:26] VITALS: BP 103/60
== END 2022-03-12 17:45 | disposition home or self-care (01) ==
LOC: N.ED 02:03 → N.5E 02:03
PROVIDERS: ADMIT Student in an Organized Health Care Education/Training Program; ATTEND Student in an Organized Health Care Education/Training Program

== ENCOUNTER 2022-03-21 05:51 | Inpatient (IN) ==
[~2022-03-21 05:51] MED LIST: LACTATED RINGERS 1,000 ML IV SCH
[2022-03-21] MEDS ORDERED: CLINDAMYCIN INJ 900 MG/50 ML PREMIX IV ONE (06:30)
[2022-03-21] MEDS ORDERED: fentaNYL 100 MCG/2 ML VIAL ONE ×2 (06:41→07:30)
[2022-03-21] MEDS ORDERED: MIDAZOLAM 2 MG/2 ML VIAL ONE (06:41)
[2022-03-21] MEDS ORDERED: LIDOCAINE 1% 5 ML VIAL ONE (06:46)
[2022-03-21] MEDS ORDERED: ROPIVACAINE 0.5% 30 ML VIAL ONE (06:46)
[2022-03-21] MEDS ORDERED: ONDANSETRON 4 MG/2 ML VIAL ONE (07:29)
[2022-03-21] MEDS ORDERED: propofoL 200 MG/20 ML VIAL IV ONE (07:29)
[2022-03-21] MEDS ORDERED: ROCURONIUM 50 MG/5 ML VIAL IV ONE (07:29)
[2022-03-21] MEDS ORDERED: LIDOCAINE 2% 5 ML VIAL ONE (07:29)
[2022-03-21] MEDS ORDERED: ACETAMINOPHEN INJ 1,000 MG/100 ML VIAL IV ONE (07:33)
[2022-03-21] MEDS ORDERED: LABETALOL 20 MG/4 ML SYRINGE IV ONE (07:34)
[2022-03-21] MEDS ORDERED: TISSUE ADHESIVE 1 EACH APPLICATOR TOP ONE (08:15)
[2022-03-21] MEDS ORDERED: NEOSTIGMINE 10 MG/10 ML VIAL ONE (09:39)
[2022-03-21] MEDS ORDERED: GLYCOPYRROLATE 0.4 MG/2 ML VIAL ONE (09:39)
[2022-03-21] MEDS ORDERED: HYDROmorphone 1 MG/1 ML SYRINGE IV PRN (09:51)
[2022-03-21] MEDS ORDERED: ACETAMINOPHEN 325 MG TABLET PO PRN (09:51)
[2022-03-21] MEDS ORDERED: SODIUM CHLORIDE 0.9% 1,000 ML IV ONE (09:55)
[2022-03-21] MEDS ORDERED: SEVOFLURANE 1 UNIT/15 MINUTE INH ONE (09:55)
[2022-03-21] MEDS ORDERED: ONDANSETRON 4 MG/2 ML VIAL IV PRN (10:12)
[2022-03-21] MEDS: HYDROmorphone 1 MG/1 ML SYRINGE IV PRN ×2 (10:22→10:36)
[2022-03-21] MEDS: LACTATED RINGERS 1,000 ML IV SCH ×2 (16:25→23:28)
[2022-03-22] MEDS: ENOXAPARIN 40 MG/0.4 ML SYRINGE SUBCUT SCH (04:30)
[2022-03-22 05:13] LABS: Basophils % 0.4 % (0.0-0.8); Eosinophils # 0.2 10*3/uL (0.0-0.87); Eosinophils % 2.1 % (0.00-10.9); Hemoglobin 8.1 GM/DL (12.0-16.0); Immature Granulocytes % 0.4 %; Immature Granulocytes Absolute 0.03 #; Lymphocytes # 2.5 10*3/uL (1.4-4.0); Lymphocytes % 30.5 % (21.3-54.2); Mean Corpuscular HGB Conc 28.9 GM/DL (32-36); Mean Corpuscular Volume 71.1 FL (87-102); Mean Platelet Volume 10.2 FL (9.6-12.0); Monocytes # 0.7 10*3/uL (0.11-0.8); Neutrophils % 58.6 % (38.7-73.9); Platelet Count 385 T/CUMM (130-400); Red Blood Count 3.94 MC/CUMM (3.8-5.5); Red Cell Distribution Width 18.3 % (9.3-17.3); White Blood Count 8.1 T/CUMM (4-12)
[2022-03-22 05:31] LABS: Calcium 8.2 MG/DL (8.5-10.1); Osmolality,Calculated 273.5 MOS/KG (273-304); Potassium 3.6 MMOL/L (3.5-5.1)
[2022-03-22] MEDS: LACTATED RINGERS 1,000 ML IV SCH ×3 (07:23→22:36)
[2022-03-22] MEDS: PANTOPRAZOLE 40 MG TABLET PO SCH (09:33)
[2022-03-22] MEDS: ONDANSETRON 4 MG/2 ML VIAL IV PRN ×2 (09:34→20:41)
[2022-03-23] MEDS: ENOXAPARIN 40 MG/0.4 ML SYRINGE SUBCUT SCH (04:32)
[2022-03-23] MEDS: LACTATED RINGERS 1,000 ML IV SCH ×2 (04:33→10:06)
[2022-03-23 08:59] LABS: Basophils % 0.5 % (0.0-0.8); Eosinophils # 0.3 10*3/uL (0.0-0.87); Eosinophils % 3.7 % (0.00-10.9); Hematocrit 26.1 VOL% (35.7-47.0); Hemoglobin 7.6 GM/DL (12.0-16.0); Immature Granulocytes % 0.3 %; Immature Granulocytes Absolute 0.02 #; Lymphocytes # 2.3 10*3/uL (1.4-4.0); Lymphocytes % 29.6 % (21.3-54.2); Mean Corpuscular HGB Conc 29.1 GM/DL (32-36); Mean Corpuscular Volume 70.2 FL (87-102); Mean Platelet Volume 10.2 FL (9.6-12.0); Monocytes # 0.7 10*3/uL (0.11-0.8); Monocytes % 9.4 % (1.7-12.7); Neutrophils % 56.5 % (38.7-73.9); Platelet Count 402 T/CUMM (130-400); Red Blood Count 3.72 MC/CUMM (3.8-5.5); Red Cell Distribution Width 18.4 % (9.3-17.3); White Blood Count 7.7 T/CUMM (4-12)
[2022-03-23] MEDS: PANTOPRAZOLE 40 MG TABLET PO SCH (09:00)
[2022-03-23 11:51] VITALS: BP 126/73
== END 2022-03-23 14:25 | disposition home or self-care (01) | DRG 355 ==
LOC: N.OR 05:51 → N.SDSINP 05:52 → N.3E 15:35
PROVIDERS: ADMIT Student in an Organized Health Care Education/Training Program; ATTEND Student in an Organized Health Care Education/Training Program